=== PATIENT | male | born 1960 | race African-American/Black ===

== ENCOUNTER 2017-04-03 13:08 | Emergency (ER) | payer OTHER ==
[~2017-04-03] VITALS: Ht 177.8 cm; Wt 77.1 kg
[~2017-04-03 13:08] MED LIST: AZITHROMYCIN250 MG ORAL; NKM; [UNRECOGNIZED DRUG - REMARK]
[2017-04-03] MEDS ORDERED: FISH OIL CAP1000 MG ORAL (13:20)
[2017-04-03 13:21] VITALS: BP 119/70
--- NOTE | 2017-04-03 13:44 | Emergency Room Report ---
History of Present Illness General Chief Complaint: Pain Source: Patient Present Illness HPI 56 YO Male presents to the ED c/o 09/25 in severity pain and swelling that is progressive to the left knee x 8 months. 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 denies fall or significant trauma otherwise. pt. reports slow progression of pain. denies erythema of the joint, denies increased temperature to palpation, denies hx of gout/pseudogout or arthritis. pt. also presents with testicular pain described as a heavy discomfort x 5 days with swelling. denies erythema, penile d/c. pt. denies sexual activity, dysuria, hematuria, urgency or frequency. pt. reports hx of scrotal surgery several years ago when in the [facility] he does not recall what his dx was. denies fevers or chills. Denies numbness tingling or loss of sensation or gross motor movements of the extremities, incontinence of bowel or bladder. Denies CP, Palpitations, LOC, AMS, dizziness, Changes in Vision, Sensation, paresthesias, or a sudden severe headache. Allergies: Coded Allergies: No Known Allergies (Unverified , 04/03/12) Patient History Past Medical History: see triage record Past Surgical History: none Pertinent Family History: none Immunizations: UTD Reviewed Nursing Documentation: PMH: Agreed, PSxH: Agreed Nursing Documentation-PMH Past Medical History: No Stated History Review of Systems All Other Systems: negative except mentioned in HPI Physical Exam Vital Signs Date Time Temp Pulse Resp B/P (MAP) Pulse Ox O2 Delivery O2 Flow Rate FiO2 04/03/17 13:16 98.2 87 16 119/70 99 Room Air Sp02 EP Interpretation: reviewed, normal General Appearance: no apparent distress, alert, GCS 15, non-toxic Head: normocephalic, atraumatic Eyes: bilateral eye normal inspection, bilateral eye PERRL ENT: hearing grossly normal, normal voice Neck: full range of motion Respiratory: lungs clear, normal breath sounds, speaking full sentences Cardiovascular #1: regular rate, rhythm, no edema, normal capillary refill Gastrointestinal: non tender, no guarding, no rebound Rectal: deferred Genitourinary: normal inspection, no CVA tenderness, penis normal, other - swollen non-erythematous scrotal sac, only one testicle is palpated, cremasteric reflex is present , negative phren's sign, no LAD, no lesions or d/ c noted. Musculoskeletal: back normal, gait/station normal, normal range of motion, swelling - left knee, tender - anterior medial left knee ttp, no increased laxity, no erythema, no increased temperature to palpation, FROM Neurologic: alert, oriented x3, responsive, motor strength/tone normal, sensory intact, speech normal Psychiatric: judgement/insight normal, memory normal, mood/affect normal Skin: normal color, no rash, warm/dry, well hydrated Lymphatic: no adenopathy Medical Decision Making PA Attestation Dr. Gil is my supervising Physician whom patient management has been discussed with. Diagnostic Impression: Primary Impression: Hydrocele in adult Additional Impression: Arthritis of knee, left ER Course 56 YO Male presents to the ED c/o 09/25 in severity pain and swelling that is progressive to the left knee x 8 months. 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 denies fall or significant trauma otherwise. pt. reports slow progression of pain. denies erythema of the joint, denies increased temperature to palpation, denies hx of gout/pseudogout or arthritis. pt. also presents with testicular pain described as a heavy discomfort x 5 days with swelling. denies erythema, penile d/c. pt. denies sexual activity, dysuria, hematuria, urgency or frequency. pt. reports hx of scrotal surgery several years ago when in the [facility] he does not recall what his dx was. denies fevers or chills. Denies numbness tingling or loss of sensation or gross motor movements of the extremities, incontinence of bowel or bladder. Denies CP, Palpitations, LOC, AMS, dizziness, Changes in Vision, Sensation, paresthesias, or a sudden severe headache. Ddx considered but are not limited to testicular torsion, epididymitis, orchitis , abscess, hydrocele, hernia, arthritis, fracture, systemic gonococcal infection, gout just to name a few. Vital signs: are WNL, pt. is afebrile H&PE are most consistent with possible arthritis in the left knee will do imaging to evaluate, testicular symptoms suspicious for hydrocele, I do not suspect torsion or infection at this time. ORDERS: -UA: Unremarkable -- X-ray Left Knee 3 views - negative for fx, Dislocation, or significant soft tissue injury, per preliminary read in ED by Dr. Grande - interpretation is scribed by PA. - Testicular ultrasound: Hydrocele of the right testicle, the left testicle was surgically removed- Per US Tech Report- please see official radiologist report attached. ED INTERVENTIONS: -Fox wrap applied to the left knee by facilities maintenance technician. Pt. remains neurovascularly intact. - Pt. given copy of x-ray images. -d/w pt. the results of labs, and imaging. d/w pt. conservative treatment with close outpatient follow up with his PMD. gave pt. ED return precautions for worsening or new symptoms. -I do not suspect an emergent condition at this time. with current presentation pt. is stable for close outpatient follow up. D/w pt. to return to ED with worsening or new symptoms. DISCHARGE: At this time pt. is stable for d/c to home. Will provide printed patient care instructions, and any necessary prescriptions. Care plan and follow up instructions have been discussed with the patient prior to discharge. Labs Test 04/03/17 13:40 Urine Color Yellow Urine Appearance Clear Urine pH 5 (4.5-8.0) Urine Specific Gardner 1.020 (1.005-1.035) Urine Protein Negative (NEGATIVE) Urine Glucose (UA) Negative (NEGATIVE) Urine Ketones Negative (NEGATIVE) Urine Occult Blood Negative (NEGATIVE) Urine Nitrite Negative (NEGATIVE) Urine Bilirubin Negative (NEGATIVE) Urine Urobilinogen Normal MG/DL (0.0-1.0) Urine Leukocyte Esterase Negative (NEGATIVE) Last Vital Signs Date Time Temp Pulse Resp B/P (MAP) Pulse Ox O2 Delivery O2 Flow Rate FiO2 04/03/17 13:21 98.2 73 16 119/70 99 Room Air Disposition: HOME, SELF-CARE Condition: Stable Scripts Ibuprofen* (MOTRIN*) 600 Mg Tablet 600 MG ORAL THREE TIMES A DAY, #20 TAB 0 Refills Prov: Jennie Olea 04/03/17 Patient Instructions: Arthritis, [id number], Hydrocele, Adult Additional Instructions: Take medications as directed. Follow up with a Primary Care Provider in 3-5 days, even if your symptoms have resolved. --Please review list of primary care clinics, if you do not already have a primary care provider Return sooner to ED if new symptoms occur, or current symptoms become worse. - Please note that this Emergency Department Report was dictated using [employer] technology software, occasionally this can lead to erroneous entry secondary to interpretation by the dictation equipment. Jennie Olea Apr 03, 2017 13:44
[2017-04-03 13:50] LABS: APPEARANCE,URINE CLEAR; KETONES,URINE NEGATIVE (NEGATIVE); LEUKOCYTE ESTERASE ,URINE NEGATIVE (NEGATIVE); NITRITE,URINE NEGATIVE (NEGATIVE); PH,URINE 5 (4.5-8.0); PROTEIN,URINE NEGATIVE (NEGATIVE); UROBILINOGEN,URINE NORMAL MG/DL (0.0-1.0)
[2017-04-03] MEDS ORDERED: IBUPROFEN600 MG ORAL (14:58)
[2017-04-03 16:16] VITALS: BP 119/70
--- NOTE | 2017-04-04 11:06 | Diagnostic Imaging Report ---
Indication: Pain 3 views of the left knee were obtained. Findings: No acute fracture, malalignment, or joint effusion are identified. There is joint space narrowing and mild marginal osteophyte formation. Impression: Osteoarthritis
== END 2017-04-03 15:45 | disposition home or self-care (01) ==
LOC: EMR 15:20
DX: M17.12 Unilateral primary osteoarthritis, left knee (principal); N43.3 Hydrocele, unspecified
CPT/HCPCS: 76870; 81003; 99283

== ENCOUNTER 2017-11-18 22:56 | Emergency (ER) | payer OTHER ==
[~2017-11-18] VITALS: Ht 177.8 cm; Wt 77.1 kg
[~2017-11-18 22:56] MED LIST changes: +FISH OIL CAP1000 MG ORAL; +IBUPROFEN600 MG ORAL
[2017-11-18] MEDS ORDERED: Morphine Sulfate 4mg/ml Inj IVP ONE (23:45)
--- NOTE | 2017-11-19 00:20 | Emergency Room Report ---
History of Present Illness General Chief Complaint: Abdominal Pain Source: Patient Present Illness HPI This is a 57-year-old male with a history of laparotomy secondary to trauma. He presents with chief complaint abdominal pain with couple episode vomiting. No bowel movement. Onset today. Pain is 8 out of 10. Diffuse in nature. No fever chills but not passing gas. Denies any other complaint. Allergies: Coded Allergies: No Known Allergies (Unverified , 04/03/12) Patient History Past Medical History: see triage record, old chart reviewed Past Surgical History: other Pertinent Family History: none Social History: Denies: smoking Immunizations: other Reviewed Nursing Documentation: PMH: Agreed; PSxH: Agreed Nursing Documentation-PMH Past Medical History: No Stated History Review of Systems Eye: Denies: eye pain, blurred vision ENT: Denies: ear pain, nose congestion, throat swelling Respiratory: Denies: cough, shortness of breath Cardiovascular: Denies: chest pain, palpitations Gastrointestinal: Reports: abdominal pain, nausea, vomiting; Denies: diarrhea Musculoskeletal: Denies: back pain, joint pain Skin: Denies: rash Neurological: Denies: headache, numbness Endocrine: Denies: increased thirst, increased urine Hematologic/Lymphatic: Denies: easy bruising All Other Systems: negative except mentioned in HPI Physical Exam Vital Signs Date Time Temp Pulse Resp B/P (MAP) Pulse Ox O2 Delivery O2 Flow Rate FiO2 11/18/17 23:04 98.0 74 18 158/93 95 Room Air 98.1 vitals with high blood pressure Sp02 EP Interpretation: reviewed, normal General Appearance: well appearing, no apparent distress, alert Head: normocephalic, atraumatic Eyes: bilateral eye PERRL, bilateral eye EOMI ENT: hearing grossly normal, normal pharynx Neck: full range of motion, supple, no meningismus Respiratory: chest non-tender, lungs clear, normal breath sounds Cardiovascular #1: regular rate, rhythm, no murmur Gastrointestinal: no mass, no organomegaly, no bruit, non-distended, tenderness - mild diffuse, decreased bowel sounds Musculoskeletal: back normal, gait/station normal, normal range of motion Psychiatric: mood/affect normal Skin: warm/dry Medical Decision Making Diagnostic Impression: Primary Impression: Abdominal pain Qualified Codes: R10.84 - Generalized abdominal pain ER Course Patient with abdominal pain. No evidence of obstruction or acute abdomen. Pain is better now. He is tolerating by mouth and said he is passing gas. He may have had intermittent obstruction or enteritis. We'll discharge home with close follow-up. Lab Results Impression labs unremarkable CT/MRI/US Diagnostic Results CT/MRI/US Diagnostic Results : Imaging Test Ordered: CT abdomen and pelvis Impression CT ABDOMEN & PELVIS Without Contrast: Evaluation is limited without contrast. At least moderate emphysema. Areas of slight left lower lung opacity. Question infectious or inflammatory. Surgical clips near the left kidney. Absent right kidney. Multiple loops of prominent, possibly mildly dilated bowel in the left central lower abdomen, potentially with a loop of fecaloid contents. Question obstruction, ileus, enteritis. Radiologist: Cristin Castro M.D. read by radiologist Last Vital Signs Date Time Temp Pulse Resp B/P (MAP) Pulse Ox O2 Delivery O2 Flow Rate FiO2 11/18/17 23:04 98.0 74 18 158/93 95 Room Air 98.1 Status: improved Disposition: HOME, SELF-CARE Condition: Stable Scripts Ibuprofen* (MOTRIN*) 600 Mg Tablet 600 MG ORAL THREE TIMES A DAY, #30 TAB 0 Refills Prov: JONATHAN YOUNG M.D. 11/19/17 Referrals: [facility],REFERRING (PCP) Patient Instructions: Abdominal Pain, Adult Additional Instructions: Follow-up your doctor in 7 days. Return for increasing pain, vomiting, unable to pass gas or having a bowel movement. JONATHAN YOUNG M.D. November 19, 2017 00:20
[2017-11-19 00:30] LABS: ANION GAP 7 mmol/L (5-15); BLOOD UREA NITROGEN 19 mg/dL (7-18); CALCIUM 8.1 MG/DL (8.5-10.1); CARBON DIOXIDE 27 MMOL/L (21-32); CHLORIDE 107 MMOL/L (98-107); CREATININE 1.5 MG/DL (0.55-1.30); POTASSIUM 4.3 MMOL/L (3.5-5.1); SODIUM 141 MMOL/L (136-145)
[2017-11-19 00:34] LABS: ALANINE AMINOTRANSFERASE 31 U/L (12-78); ALBUMIN 2.7 G/DL (3.4-5.0); ALBUMIN/GLOBULIN RATIO 0.9 (1.0-2.7); ALKALINE PHOSPHATASE 42 U/L (46-116); ASPARTATE AMINO TRANSFERASE 26 U/L (15-37); BILIRUBIN,TOTAL 0.5 MG/DL (0.2-1.0)
[2017-11-19 00:41] LABS: HEMATOCRIT 46.2 % (42.0-52.0); HEMOGLOBIN 16.5 G/DL (14.2-18.0); RED BLOOD COUNT 5.01 M/UL (4.70-6.10); WHITE BLOOD COUNT 6.8 K/UL (4.8-10.8)
[2017-11-19 00:42] LABS: EOSINOPHILS % (AUTO) 0.1 % (0.0-3.0); MEAN CORPUSCULAR VOLUME 92 FL (80-99); MONOCYTES % (AUTO) 3.2 % (1.0-10.0); NEUTROPHILS % (AUTO) 81.8 % (45.0-75.0); PLATELET COUNT 123 K/UL (150-450); RED CELL DISTRIBUTION WIDTH 11.7 % (11.6-14.8)
[2017-11-19 00:43] LABS: BASOPHILS % (AUTO) 0.9 % (0.0-2.0)
[2017-11-19 01:57] VITALS: BP 158/93
[2017-11-19] MEDS ORDERED: IBUPROFEN600 MG ORAL (01:57)
--- NOTE | 2017-11-19 10:59 | Diagnostic Imaging Report ---
Indication: Abdominal pain Technique: CT of the abdomen and pelvis utilizing automated exposure control without intravenous or oral contrast. CT dose: Total DLP 552.06 mGycm; CTDI vol 10.78 mGy Comparison: None Findings: Please note that evaluation of the vascular and abdominal pelvic structures is limited without the use of intravenous and oral contrast. Within these limitations the following observations are made: There is at least moderate emphysema noted in the lung bases. There are dependent bibasilar atelectatic changes. With more focal opacities in the left lower lung which may be related to infection or inflammation heart size within normal limits. There is no pericardial effusion. Question mild coronary arterial calcification. Noncontrast evaluation of the liver, gallbladder, spleen, adrenal glands and pancreas is grossly unremarkable. The right kidney is surgically absent. There are surgical clips anterior to the left kidney. There are low-attenuation structures in the left renal hilum which likely represent parapelvic cysts. No evidence of hydronephrosis or urinary tract stone. Bladder unremarkable in appearance. Prostate may be borderline enlarged. There is no free intraperitoneal air. There is no ascites. There multiple loops of prominent and possibly mildly dilated small bowel left central and lower abdomen, potentially with a loop of fecalized small bowel contents. This raises question for obstruction, ileus or enteritis. Consider more sensitive evaluation with CT with oral and IV contrast. Abdominal aorta is normal in caliber with mild atherosclerotic ossification. No bulky/abdominal lymphadenopathy is appreciated. There are degenerative changes in the spine. IMPRESSION: Limited evaluation without intravenous and oral contrast. Within these limitations: * Multiple loops mildly dilated bowel in the left central lower abdomen with a loop of small bowel demonstrating fecalized content in the pelvis. This raises question for a degree of obstruction. CT of the abdomen and pelvis with IV and oral contrast recommended for further evaluation, especially if there is persistent abdominal pain. No evidence of free intraperitoneal air, ascites, pneumatosis intestinalis or portal venous gas at this time. * Absent right kidney. * Emphysema. * Asymmetric hazy left lower lung opacities which may be related to infection or inflammation. Correlate clinically. This corresponds with the preliminary report, with slight variance. Findings of final report discussed with Dr. Mckenzie of the ED approximately 10:[address] scanner at [facility] is accredited by the [employer] and the scans are performed using protocols designed to limit radiation exposure to as low as reasonably achievable to attain images of sufficient resolution adequate for diagnostic evaluation.
== END 2017-11-19 02:05 | disposition home or self-care (01) ==
LOC: EMR 23:21
DX: R10.9 Unspecified abdominal pain (principal); R11.2 Nausea with vomiting, unspecified; J43.9 Emphysema, unspecified; Z98.890 Other specified postprocedural states
CPT/HCPCS: 36415; 74176; 80053; 83690; 85025; 96374; 96375; 99284; J2270; J2405

== ENCOUNTER 2017-11-19 12:12 | Inpatient (IN) | payer OTHER ==
[~2017-11-19] VITALS: Ht 177.8 cm; Wt 77.1 kg
[2017-11-19 12:57] VITALS: BP 123/81
--- NOTE | 2017-11-19 13:01 | Emergency Room Report ---
History of Present Illness General Chief Complaint: Abdominal Pain Source: Patient Present Illness HPI Patient presents emergency department today complaining of abdominal pain. Patient states that he was in the emergency department yesterday. Actually I was called by radiology this morning to evaluate the patient because patient had a CT scan that was concerning for possible bowel obstruction. Patient was sitting in emergency Department last night. Patient has had some abdominal discomfort. Patient has had a couple episodes of vomiting. Patient has had history of trauma surgery. CAT scan was performed last night he was initially read as negative. However this morning I was informed by radiology to patient' s CAT scan could possibly show a bowel obstruction. Because of this finding I called the patient was states that he is still having abdominal pain which is why patient came in for further evaluation. Patient denies any other complaints. Symptoms noted to be moderate to severe. According to the radiologist they recommended getting a CT scan with oral contrast. Patient does have elevated creatinine therefore we'll hold IV contrast.No other modifying factors. No other associated signs and symptoms. No other complaints were noted. Allergies: Coded Allergies: No Known Allergies (Unverified , 04/03/12) Patient History Past Medical History: none PSxH Narrative prior surgical intervention for trauma Social History: Denies: smoking, alcohol use, drug use Reviewed Nursing Documentation: PMH: Agreed; PSxH: Agreed Nursing Documentation-PMH Past Medical History: No Stated History Review of Systems All Other Systems: negative except mentioned in HPI Physical Exam Vital Signs Date Time Temp Pulse Resp B/P (MAP) Pulse Ox O2 Delivery O2 Flow Rate FiO2 11/19/17 12:23 98.4 86 16 123/81 94 Room Air 98.4 Sp02 EP Interpretation: reviewed, normal General Appearance: normal inspection, well appearing, no apparent distress, alert Head: atraumatic Eyes: bilateral eye normal inspection ENT: normal ENT inspection, hearing grossly normal, normal voice Neck: normal inspection, full range of motion, supple, no bony tend Respiratory: normal inspection, lungs clear, normal breath sounds, no respiratory distress, no retraction, no wheezing Cardiovascular #1: regular rate, rhythm, no edema Gastrointestinal: soft, other - Diffusely tender to palpation Genitourinary: no CVA tenderness Musculoskeletal: normal inspection, back normal, normal range of motion Neurologic: normal inspection, alert, responsive, speech normal Psychiatric: normal inspection, judgement/insight normal, mood/affect normal Skin: normal inspection, normal color, no rash Medical Decision Making Diagnostic Impression: Primary Impression: Abdominal pain ER Course Patient presents emergency department today complaining of abdominal pain. Differential diagnoses include bowel obstruction, ileus, gastroenteritis, colitis just name a few.Given the severity of the patient's presentation I felt this is a highly complex patient. This patient required extensive workup. Given patient's presentation and prior CT scan we will obtain another CT scan with oral contrast.will sign the case out to Dr. Ben Noriega for final disposition Last Vital Signs Date Time Temp Pulse Resp B/P (MAP) Pulse Ox O2 Delivery O2 Flow Rate FiO2 11/19/17 12:23 98.4 86 16 123/81 94 Room Air 98.4 Referrals: [facility],REFERRING (PCP) THOMAS KUMAR M.D. November 19, 2017 13:01
[2017-11-19 13:15] LABS: BASOPHILS % (AUTO) 1.3 % (0.0-2.0); EOSINOPHILS % (AUTO) 0.1 % (0.0-3.0); LYMPHOCYTES % (AUTO) 17.9 % (20.0-45.0); MEAN CORPUSCULAR VOLUME 95 FL (80-99); MONOCYTES % (AUTO) 6.3 % (1.0-10.0); NEUTROPHILS % (AUTO) 74.3 % (45.0-75.0); PLATELET COUNT 123 K/UL (150-450); RED BLOOD COUNT 5.16 M/UL (4.70-6.10); RED CELL DISTRIBUTION WIDTH 11.8 % (11.6-14.8); WHITE BLOOD COUNT 6.5 K/UL (4.8-10.8)
[2017-11-19] MEDS ORDERED: Morphine Sulfate 4mg/ml Inj ONE (13:15)
[2017-11-19] MEDS ORDERED: Morphine Sulfate 4mg/ml Inj IVP ONE ×2 (13:15→16:00)
[2017-11-19 13:17] LABS: APPEARANCE,URINE CLEAR; BILIRUBIN, URINE NEGATIVE (NEGATIVE); GLUCOSE, URINE (UA) NEGATIVE (NEGATIVE); KETONES,URINE 2+ (NEGATIVE); LEUKOCYTE ESTERASE ,URINE 1+ (NEGATIVE); NITRITE,URINE NEGATIVE (NEGATIVE); PH,URINE 6 (4.5-8.0); PROTEIN,URINE 1+ (NEGATIVE); UROBILINOGEN,URINE NORMAL MG/DL (0.0-1.0)
[2017-11-19 13:20] LABS: COLOR,URINE YELLOW
[2017-11-19 13:26] LABS: INR 1.5 (0.9-1.1)
[2017-11-19 13:38] LABS: ALANINE AMINOTRANSFERASE 29 U/L (12-78); ALBUMIN 2.8 G/DL (3.4-5.0); ALBUMIN/GLOBULIN RATIO 0.8 (1.0-2.7); ALKALINE PHOSPHATASE 46 U/L (46-116); ANION GAP 5 mmol/L (5-15); ASPARTATE AMINO TRANSFERASE 34 U/L (15-37); BILIRUBIN,TOTAL 0.8 MG/DL (0.2-1.0); BLOOD UREA NITROGEN 17 mg/dL (7-18); CALCIUM 8.7 MG/DL (8.5-10.1); CARBON DIOXIDE 29 MMOL/L (21-32); CHLORIDE 105 MMOL/L (98-107); CREATININE 1.4 MG/DL (0.55-1.30); POTASSIUM 4.8 MMOL/L (3.5-5.1); SODIUM 139 MMOL/L (136-145)
[2017-11-19 14:40] VITALS: BP 123/77
--- NOTE | 2017-11-19 15:20 | Diagnostic Imaging Report ---
Indication: Abdominal pain Technique: CT of the abdomen and pelvis utilizing automated exposure control without intravenous contrast, oral contrast was administered. CT dose: Total DLP 535 mGycm; CTDI vol 10.8 mGy Comparison: 11/18/2017 Findings: Please note that evaluation of the vascular and abdominal and pelvic structures is limited without the use of intravenous contrast. Within these limitations the following observations are made: Moderate emphysema noted in the lung bases. There is some patchy opacities in the left lower lung unchanged from the prior exam which may be related to scarring, atelectasis or may be infectious or inflammatory etiology. There is no pericardial effusion. There is mild coronary arterial calcification. Noncontrast evaluation of the liver, gallbladder, spleen, adrenal glands and pancreas is grossly unremarkable. The right kidney is surgically absent. There are surgical clips anterior to the left kidney. There are low-attenuation structures in the left renal hilum which likely represent parapelvic cysts. No evidence of hydronephrosis or urinary tract stone. There is distention versus thickening of the bladder wall. Prostate is borderline enlarged. There is no free intraperitoneal air. There is persistent dilatation of small bowel loops in the left lower abdomen, with dilatation of some loops up to 4 cm in diameter (series 3 image #80). There probably some mild inflammatory stranding in the mesentery about these loops. Again noted is a loop of small bowel in the pelvis that demonstrates abnormal fecalization of contents. Distal small bowel loops are normal in caliber. Colon is decompressed. There is no definite pneumatosis intestinalis or portal venous gas. Abdominal aorta is normal in caliber with mild atherosclerotic ossification. No bulky/abdominal lymphadenopathy is appreciated. There are degenerative changes in the spine. IMPRESSION: Limited evaluation without intravenous contrast. Within these limitations: * Multiple loops of dilated small in the left lower abdomen, some measuring up to 4 cm in diameter with a loop of small bowel in the pelvis demonstrating abnormal fecalization of contents. This is again concerning for a degree of small bowel obstruction. Question subtle inflammatory change about some of the dilated small bowel loops in the left abdomen. No evidence of free intraperitoneal air, pneumatosis intestinalis or portal venous gas at this time. Surgical evaluation recommended. * Absent right kidney. * Emphysema. * Asymmetric hazy left lower lung opacities which may be related to scarring/atelectasis, infection or inflammation. Correlate clinically. The CT scanner at [facility] is accredited by the [employer] and the scans are performed using protocols designed to limit radiation exposure to as low as reasonably achievable to attain images of sufficient resolution adequate for diagnostic evaluation.
[2017-11-19 17:16] VITALS: BP 127/63
[2017-11-19 17:57] VITALS: BP 141/78
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
[2017-11-19] MEDS ORDERED: Albuterol/Ipratropium 3ml neb HHN PRN (19:45)
[2017-11-19 20:00] VITALS: BP 145/84
[2017-11-19] MEDS ORDERED: Morphine Sulfate 4mg/ml Inj IM PRN (20:15)
[2017-11-19] MEDS ORDERED: Morphine Sulfate 4mg/ml Inj IVP PRN (20:15)
[2017-11-19] MEDS: Morphine Sulfate 4mg/ml Inj IVP PRN (20:43)
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
[2017-11-19] MEDS: Heparin 5000 units/ml inj SUBQ SCH (21:41)
[2017-11-20] VITALS: BP 131/80
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
[2017-11-20 04:00] VITALS: BP 142/80
[2017-11-20] MEDS: Heparin 5000 units/ml inj SUBQ SCH ×3 (05:18→22:00)
[2017-11-20 08:06] VITALS: BP 135/76
--- NOTE | 2017-11-20 08:20 | Nephrology Progress Note ---
Assessment/Plan Assessment/Plan 1. Abd Pain- SBO - NG to suction - prn morphine - KUB this am. Appreciate surgery assistance - continue IVF's 2. CKD 3B- Cr approx 1.4-1.6 s/p right nephrectomy- solitary left kidney 3. DVT prophylaxsis- heparin 5000 units subq q 8hrs Subjective Date patient seen: November 20, 2017 Time patient seen: 08:15 ROS Limited/Unobtainable: No Gastrointestinal/Abdominal: Reports: abdominal pain Allergies: Coded Allergies: No Known Allergies (Unverified , 04/03/12) All Systems: reviewed and negative except above Subjective Patient with NG to suction. Abd pain improved Objective Last 24 Hour Vital Signs Date Time Temp Pulse Resp B/P (MAP) Pulse Ox O2 Delivery O2 Flow Rate FiO2 11/20/17 08:06 98.4 74 20 135/76 98 98.4 11/20/17 07:12 97 Nasal Cannula 2.0 11/20/17 04:00 98.1 60 20 142/80 97 Room Air 98.1 11/20/17 00:00 98.0 71 18 131/80 97 Room Air 98.0 11/19/17 21:13 97.9 11/19/17 20:43 97.9 11/19/17 20:00 97.9 66 19 145/84 94 Room Air 97.9 11/19/17 19:39 98.5 68 20 141/78 95 Room Air 98.5 11/19/17 17:57 98.5 68 20 141/78 95 98.5 11/19/17 17:16 208.4 16 127/63 94 Room Air 208.4 11/19/17 16:33 98.0 11/19/17 14:40 98.0 16 123/77 94 Room Air 98.0 11/19/17 13:20 98.4 11/19/17 12:57 98.4 16 123/81 94 Room Air 98.4 11/19/17 12:23 98.4 86 16 123/81 94 Room Air 98.4 Intake and Output 11/19/17 11/20/17 19:00 07:00 Intake Total 0 ml 750 ml Output Total 500 ml 500 ml Balance -500 ml 250 ml Intake Oral 0 ml IV Total 750 ml Output Urine Total 400 ml Emesis 500 ml Other 100 ml Laboratory Tests 11/19/17 13:00: White Blood Count 6.5, Red Blood Count 5.16, Hemoglobin 17.0, Hematocrit 49.0, Mean Corpuscular Volume 95, Mean Corpuscular Hemoglobin 33.0H, Mean Corpuscular Hemoglobin Concent 34.8, Red Cell Distribution Width 11.8, Platelet Count 123L, Mean Platelet Volume 10.5H, Neutrophils (%) (Auto) 74.3, Lymphocytes (%) (Auto) 17.9L, Monocytes (%) (Auto) 6.3, Eosinophils (%) (Auto) 0.1, Basophils (%) (Auto ) 1.3, Prothrombin Time 15.9H, Prothromb Time International Ratio 1.5H, Activated Partial Thromboplast Time 23, Urine Color Yellow, Urine Appearance Clear, Urine pH 6, Urine Specific [place] 1.020, Urine Protein 1+H, Urine Glucose (UA) Negative, Urine Ketones 2+H, Urine Occult Blood Negative, Urine Nitrite Negative, Urine Bilirubin Negative, Urine Urobilinogen Normal, Urine Leukocyte Esterase 1+H, Urine RBC 0-2H, Urine WBC 0-2, Urine Squamous Epithelial Cells Occasional, Urine Bacteria Occasional, Sodium Level 139, Potassium Level 4.8, Chloride Level 105, Carbon Dioxide Level 29, Anion Gap 5, Blood Urea Nitrogen 17, Creatinine 1.4H, Estimat Glomerular Filtration Rate > 60 , Glucose Level 96, Calcium Level 8.7, Total Bilirubin 0.8, Aspartate Amino Transf (AST/SGOT) 34, Alanine Aminotransferase (ALT/SGPT) 29, Alkaline Phosphatase 46, Total Protein 6.1L, Albumin 2.8L, Globulin 3.3, Albumin/ Globulin Ratio 0.8L, Lipase 90 11/20/17 00:00: White Blood Count [Pending], Red Blood Count [Pending], Hemoglobin [Pending], Hematocrit [Pending], Mean Corpuscular Volume [Pending], Mean Corpuscular Hemoglobin [Pending], Mean Corpuscular Hemoglobin Concent [Pending], Red Cell Distribution Width [Pending], Platelet Count [Pending], Mean Platelet Volume [ Pending], Neutrophils (%) (Auto) [Pending], Lymphocytes (%) (Auto) [Pending], Monocytes (%) (Auto) [Pending], Eosinophils (%) (Auto) [Pending], Basophils (%) (Auto) [Pending] Height (Feet): 5 Height (Inches): 10.00 Weight (Pounds): 170 General Appearance: WD/WN, mild distress EENT: PERRL/EOMI, normal ENT inspection Neck: non-tender, normal alignment Cardiovascular: normal rate, regular rhythm Respiratory/Chest: chest wall non-tender, lungs clear, normal breath sounds Abdomen: normal bowel sounds, non tender Extremities: normal range of motion, non-tender Edema: no edema noted Arm (L), no edema noted Arm (R), no edema noted Leg (L), no edema noted Leg (R), no edema noted Pedal (L), no edema noted Pedal (R), no edema noted Generalized Keith Reilly M.D. November 20, 2017 08:19
[2017-11-20 09:07] LABS: BASOPHILS % (AUTO) 2.3 % (0.0-2.0); EOSINOPHILS % (AUTO) 0.4 % (0.0-3.0); HEMATOCRIT 43.6 % (42.0-52.0); HEMOGLOBIN 15.2 G/DL (14.2-18.0); MEAN CORPUSCULAR VOLUME 94 FL (80-99); MONOCYTES % (AUTO) 9.1 % (1.0-10.0); NEUTROPHILS % (AUTO) 70.2 % (45.0-75.0); PLATELET COUNT 122 K/UL (150-450); RED BLOOD COUNT 4.65 M/UL (4.70-6.10); RED CELL DISTRIBUTION WIDTH 11.8 % (11.6-14.8); WHITE BLOOD COUNT 6.3 K/UL (4.8-10.8)
[2017-11-20 09:22] LABS: ANION GAP 5 mmol/L (5-15); BLOOD UREA NITROGEN 13 mg/dL (7-18); CALCIUM 7.7 MG/DL (8.5-10.1); CARBON DIOXIDE 26 MMOL/L (21-32); CHLORIDE 109 MMOL/L (98-107); CREATININE 1.3 MG/DL (0.55-1.30); POTASSIUM 4.3 MMOL/L (3.5-5.1); SODIUM 140 MMOL/L (136-145)
[2017-11-20 11:50] VITALS: BP 147/82
--- NOTE | 2017-11-20 14:14 | General Surgery Progress Note ---
General Surgery-Progress Note Subjective Symptoms: passing flatus Objective Last 24 Hour Vital Signs Date Time Temp Pulse Resp B/P (MAP) Pulse Ox O2 Delivery O2 Flow Rate FiO2 11/20/17 13:23 69 18 Nasal Cannula 2.0 28 11/20/17 13:23 99 Nasal Cannula 2.0 28 11/20/17 13:23 Nasal Cannula 2.0 28 11/20/17 11:50 98.0 65 20 147/82 97 98.0 11/20/17 08:06 Nasal Cannula 2.0 11/20/17 08:06 98.4 74 20 135/76 98 98.4 11/20/17 07:12 97 Nasal Cannula 2.0 11/20/17 04:00 98.1 60 20 142/80 97 Room Air 98.1 11/20/17 00:00 98.0 71 18 131/80 97 Room Air 98.0 11/19/17 21:13 97.9 11/19/17 20:43 97.9 11/19/17 20:00 97.9 66 19 145/84 94 Room Air 97.9 11/19/17 19:39 98.5 68 20 141/78 95 Room Air 98.5 11/19/17 17:57 98.5 68 20 141/78 95 98.5 11/19/17 17:16 208.4 16 127/63 94 Room Air 208.4 11/19/17 16:33 98.0 11/19/17 14:40 98.0 16 123/77 94 Room Air 98.0 I&O Intake and Output 11/19/17 11/20/17 19:00 07:00 Intake Total 0 ml 750 ml Output Total 500 ml 500 ml Balance -500 ml 250 ml Intake Oral 0 ml IV Total 750 ml Output Urine Total 400 ml Emesis 500 ml Other 100 ml Drains: none Respiratory: clear Abdomen: soft, non-tender, present bowel sounds Extremities: no edema, no tenderness Laboratory Tests Test 11/20/17 08:40 White Blood Count 6.3 K/UL (4.8-10.8) Red Blood Count 4.65 M/UL (4.70-6.10) L Hemoglobin 15.2 G/DL (14.2-18.0) Hematocrit 43.6 % (42.0-52.0) Mean Corpuscular Volume 94 FL (80-99) Mean Corpuscular Hemoglobin 32.7 PG (27.0-31.0) H Mean Corpuscular Hemoglobin Concent 34.8 G/DL (32.0-36.0) Red Cell Distribution Width 11.8 % (11.6-14.8) Platelet Count 122 K/UL (150-450) L Mean Platelet Volume 11.5 FL (6.5-10.1) H Neutrophils (%) (Auto) 70.2 % (45.0-75.0) Lymphocytes (%) (Auto) 18.0 % (20.0-45.0) L Monocytes (%) (Auto) 9.1 % (1.0-10.0) Eosinophils (%) (Auto) 0.4 % (0.0-3.0) Basophils (%) (Auto) 2.3 % (0.0-2.0) H Sodium Level 140 MMOL/L (136-145) Potassium Level 4.3 MMOL/L (3.5-5.1) Chloride Level 109 MMOL/L (98-107) H Carbon Dioxide Level 26 MMOL/L (21-32) Anion Gap 5 mmol/L (5-15) Blood Urea Nitrogen 13 mg/dL (7-18) Creatinine 1.3 MG/DL (0.55-1.30) Estimat Glomerular Filtration Rate > 60 mL/min (>60) Glucose Level 110 MG/DL (74-106) H Calcium Level 7.7 MG/DL (8.5-10.1) L Imaging contrast in ascending colon Assessment Additional Comments R/O SBO Plan Additional Comments remove NG tube JAYCOB SÁNCHEZ November 20, 2017 14:14
[2017-11-20] MEDS ORDERED: Metoclopramide 10mg/2ml Inj IVP PRN (14:22)
[2017-11-20] MEDS ORDERED: Calcium Gluconate 1gm/10ml vial IVP ONE (15:15)
[2017-11-20 16:03] VITALS: BP 143/72
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
[2017-11-20] MEDS: Docusate Sod/Senna tab ORAL SCH (17:58)
[2017-11-20 20:00] VITALS: BP 142/65
[2017-11-20] MEDS: Miralax 17gm pkt ORAL SCH (20:34)
[2017-11-20] MEDS: Morphine Sulfate 4mg/ml Inj IVP PRN (20:35)
[2017-11-21] VITALS: BP 145/69
[2017-11-21 04:00] VITALS: BP 110/64
[2017-11-21] MEDS: Heparin 5000 units/ml inj SUBQ SCH ×3 (05:52→22:00)
[2017-11-21 07:57] VITALS: BP 115/71
[2017-11-21] MEDS: Docusate Sod/Senna tab ORAL SCH ×2 (08:55→17:04)
--- NOTE | 2017-11-21 09:28 | Nephrology Progress Note ---
Assessment/Plan Assessment/Plan 1. Abd Pain- SBO - NG removed - DC IVF's - plan to DC tomorrow if patient tolerates solid food and cleared by surgery 2. CKD 3B- Cr approx 1.4-1.6 s/p right nephrectomy- solitary left kidney I will follow patient in my renal clinic post DC for CKD management 3. DVT prophylaxsis- heparin 5000 units subq q 8hrs Subjective Date patient seen: November 21, 2017 Time patient seen: 09:26 Allergies: Coded Allergies: No Known Allergies (Unverified , 04/03/12) All Systems: reviewed and negative except above Subjective NG removed. Patient passing gas. On liquid diet Objective Last 24 Hour Vital Signs Date Time Temp Pulse Resp B/P (MAP) Pulse Ox O2 Delivery O2 Flow Rate FiO2 11/21/17 07:57 98.4 59 20 115/71 94 98.4 11/21/17 04:00 98.1 65 20 110/64 94 98.1 11/21/17 00:00 98.2 60 19 145/69 99 98.2 11/20/17 20:00 98.4 59 20 142/65 100 98.4 11/20/17 19:35 Room Air 21 11/20/17 19:35 100 Room Air 21 11/20/17 19:35 65 20 Nasal Cannula 21 11/20/17 16:03 Nasal Cannula 2.0 11/20/17 16:03 97.7 65 20 143/72 100 97.7 11/20/17 13:23 69 18 Nasal Cannula 2.0 28 11/20/17 13:23 99 Nasal Cannula 2.0 28 11/20/17 13:23 Nasal Cannula 2.0 28 11/20/17 11:50 98.0 65 20 147/82 97 98.0 11/20/17 11:50 Nasal Cannula 2.0 Intake and Output 11/20/17 11/21/17 19:00 07:00 Intake Total 900 ml 900 ml Output Total 800 ml Balance 100 ml 900 ml IV Total 900 ml 900 ml Output Urine Total 800 ml # Voids 3 # Bowel Movements 1 Height (Feet): 5 Height (Inches): 10.00 Weight (Pounds): 170 General Appearance: WD/WN, no apparent distress, alert EENT: PERRL/EOMI, normal ENT inspection Neck: non-tender, normal alignment Cardiovascular: normal peripheral pulses, normal rate Respiratory/Chest: chest wall non-tender, lungs clear, normal breath sounds Abdomen: normal bowel sounds, non tender, soft Edema: no edema noted Arm (L), no edema noted Arm (R), no edema noted Leg (L), no edema noted Leg (R), no edema noted Pedal (L), no edema noted Pedal (R), no edema noted Generalized Keith Reilly M.D. November 21, 2017 09:28
[2017-11-21 09:37] LABS: BASOPHILS % (AUTO) 1.2 % (0.0-2.0); EOSINOPHILS % (AUTO) 1.6 % (0.0-3.0); HEMATOCRIT 42.8 % (42.0-52.0); HEMOGLOBIN 15.2 G/DL (14.2-18.0); MEAN CORPUSCULAR VOLUME 94 FL (80-99); MONOCYTES % (AUTO) 10.7 % (1.0-10.0); NEUTROPHILS % (AUTO) 60.4 % (45.0-75.0); PLATELET COUNT 115 K/UL (150-450); RED BLOOD COUNT 4.57 M/UL (4.70-6.10); RED CELL DISTRIBUTION WIDTH 11.6 % (11.6-14.8); WHITE BLOOD COUNT 4.6 K/UL (4.8-10.8)
[2017-11-21 10:12] LABS: ANION GAP 8 mmol/L (5-15); BLOOD UREA NITROGEN 11 mg/dL (7-18); CALCIUM 7.9 MG/DL (8.5-10.1); CARBON DIOXIDE 24 MMOL/L (21-32); CHLORIDE 109 MMOL/L (98-107); CREATININE 1.2 MG/DL (0.55-1.30); POTASSIUM 4.1 MMOL/L (3.5-5.1); SODIUM 141 MMOL/L (136-145)
[2017-11-21 12:04] VITALS: BP 127/80
--- NOTE | 2017-11-21 15:38 | General Surgery Progress Note ---
General Surgery-Progress Note Subjective Symptoms: improved, BM Objective Last 24 Hour Vital Signs Date Time Temp Pulse Resp B/P (MAP) Pulse Ox O2 Delivery O2 Flow Rate FiO2 11/21/17 12:04 98.2 64 127/80 98 Room Air 98.2 11/21/17 07:57 98.4 59 20 115/71 94 98.4 11/21/17 04:00 98.1 65 20 110/64 94 98.1 11/21/17 00:00 98.2 60 19 145/69 99 98.2 11/20/17 20:00 98.4 59 20 142/65 100 98.4 11/20/17 19:35 Room Air 21 11/20/17 19:35 100 Room Air 21 11/20/17 19:35 65 20 Nasal Cannula 21 11/20/17 16:03 Nasal Cannula 2.0 11/20/17 16:03 97.7 65 20 143/72 100 97.7 I&O Intake and Output 11/20/17 11/21/17 19:00 07:00 Intake Total 900 ml 900 ml Output Total 800 ml Balance 100 ml 900 ml IV Total 900 ml 900 ml Output Urine Total 800 ml # Voids 3 # Bowel Movements 1 Respiratory: clear Abdomen: soft, flat, non-tender, present bowel sounds Extremities: no tenderness Laboratory Tests Test 11/21/17 07:35 White Blood Count 4.6 K/UL (4.8-10.8) L Red Blood Count 4.57 M/UL (4.70-6.10) L Hemoglobin 15.2 G/DL (14.2-18.0) Hematocrit 42.8 % (42.0-52.0) Mean Corpuscular Volume 94 FL (80-99) Mean Corpuscular Hemoglobin 33.2 PG (27.0-31.0) H Mean Corpuscular Hemoglobin Concent 35.5 G/DL (32.0-36.0) Red Cell Distribution Width 11.6 % (11.6-14.8) Platelet Count 115 K/UL (150-450) L Mean Platelet Volume 10.0 FL (6.5-10.1) Neutrophils (%) (Auto) 60.4 % (45.0-75.0) Lymphocytes (%) (Auto) 26.0 % (20.0-45.0) Monocytes (%) (Auto) 10.7 % (1.0-10.0) H Eosinophils (%) (Auto) 1.6 % (0.0-3.0) Basophils (%) (Auto) 1.2 % (0.0-2.0) Sodium Level 141 MMOL/L (136-145) Potassium Level 4.1 MMOL/L (3.5-5.1) Chloride Level 109 MMOL/L (98-107) H Carbon Dioxide Level 24 MMOL/L (21-32) Anion Gap 8 mmol/L (5-15) Blood Urea Nitrogen 11 mg/dL (7-18) Creatinine 1.2 MG/DL (0.55-1.30) Estimat Glomerular Filtration Rate > 60 mL/min (>60) Glucose Level 100 MG/DL (74-106) Calcium Level 7.9 MG/DL (8.5-10.1) L Assessment Additional Comments paralytic ileus resolved Plan Additional Comments advance diet can be discharged in AM JAYCOB SÁNCHEZ November 21, 2017 15:38
[2017-11-21 15:59] VITALS: BP 134/82
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
[2017-11-21 20:00] VITALS: BP 134/84
[2017-11-21] MEDS: Miralax 17gm pkt ORAL SCH (21:00)
[2017-11-22] VITALS: BP 110/65
[2017-11-22 04:00] VITALS: BP 122/74
[2017-11-22] MEDS: Heparin 5000 units/ml inj SUBQ SCH (05:21)
[2017-11-22 08:00] VITALS: BP 116/66
[2017-11-22 08:28] LABS: BASOPHILS % (AUTO) 1.6 % (0.0-2.0); HEMATOCRIT 44.6 % (42.0-52.0); HEMOGLOBIN 15.8 G/DL (14.2-18.0); MEAN CORPUSCULAR VOLUME 94 FL (80-99); MONOCYTES % (AUTO) 11.3 % (1.0-10.0); NEUTROPHILS % (AUTO) 53.2 % (45.0-75.0); PLATELET COUNT 118 K/UL (150-450); RED BLOOD COUNT 4.74 M/UL (4.70-6.10); RED CELL DISTRIBUTION WIDTH 11.4 % (11.6-14.8); WHITE BLOOD COUNT 4.3 K/UL (4.8-10.8)
[2017-11-22] MEDS: Docusate Sod/Senna tab ORAL SCH (08:36)
[2017-11-22 08:42] LABS: ANION GAP 7 mmol/L (5-15); BLOOD UREA NITROGEN 13 mg/dL (7-18); CALCIUM 7.9 MG/DL (8.5-10.1); CARBON DIOXIDE 25 MMOL/L (21-32); CHLORIDE 111 MMOL/L (98-107); CREATININE 1.3 MG/DL (0.55-1.30); POTASSIUM 4.7 MMOL/L (3.5-5.1); SODIUM 143 MMOL/L (136-145)
--- NOTE | 2017-11-22 09:49 | Discharge Instructions ---
Discharge Instructions Discharge Instructions Call MD/Return to Hospital if: Abdominal pain returns Diet: regular Resume Normal Activity?: Yes Activity: resume normal activities Pneumonia Vaccine: vaccine not indicated Influenza Vaccine (Apr to Sep): vaccine not indicated For Congestive Heart Failure Reminder Report to your physician any weight gain of 5 pounds or more in one week. Keith Reilly M.D. November 22, 2017 09:49
--- NOTE | 2017-11-22 14:15 | Discharge Summary ---
DATE OF ADMISSION: 11/19/2017 DATE OF DISCHARGE: 11/22/2017 REASON FOR ADMISSION: 1. Abdominal pain. 2. Small bowel obstruction/ileus. HOSPITAL COURSE: The patient is a pleasant 57-year-old gentleman, who was admitted for evaluation of abdominal pain, nausea, and vomiting. With CT of the abdomen and pelvis, then noticed a partial small bowel obstruction versus ileus. The patient was admitted on a timely basis and was placed on NPO status. NG-tube to intermittent suction was placed. IV fluids were initiated. The patient progressively improved and abdominal pain resolved. After the third day of hospitalization, the patient had his diet advanced from clear liquids to full diet. He then had flatus and bowel movements. He is stable for discharge today. HOME MEDICATIONS: At this time, the patient is on no medications. FOLLOWUP POST DISCHARGE: The patient to follow up with myself, Nephrology for CKD, stage 3b, creatinine 1.3. My office will call him in one to two weeks for an appointment. DISPOSITION AT DISCHARGE: Stable. If abdominal pain returns or the patient has any further nausea or vomiting, he is to return to the hospital. Keith Reilly MD DR: YASMIN JOB#: [id number] CC:
--- NOTE | 2017-11-23 08:08 | Discharge Summary ---
Discharge Summary Discharge Summary Discharge Summary ADDENDUM DISCHARGE DIAGNOSES Small bowel obstruction-resolved abdominal pain 2 to SERGE-resolved CKD st 3 COPD Chandrakant (Christy)Lucy NP November 23, 2017 08:08
== END 2017-11-22 11:00 | disposition home or self-care (01) | DRG 247 ==
LOC: EMR 12:31 → EDBEDREQ 15:30 → 4W 15:35 → EDBEDREQ 16:40
DX: K56.7 Ileus, unspecified (principal); N18.3 Chronic kidney disease, stage 3 (moderate); J44.9 Chronic obstructive pulmonary disease, unspecified; Z90.5 Acquired absence of kidney; Z87.891 Personal history of nicotine dependence
CPT/HCPCS: 36415; 74018; 74176; 80048; 80053; 81003; 83690; 85025; 85610; 85730; 94664; 94760; 99285; C9399; J2405

== ENCOUNTER 2017-12-04 06:44 | Emergency (ER) | payer OTHER ==
[~2017-12-04] VITALS: Ht 177.8 cm; Wt 77.1 kg
[2017-12-04 07:10] VITALS: BP 132/84
[2017-12-04] MEDS ORDERED: IBUPROFEN600 MG ORAL (08:05)
[2017-12-04 08:12] VITALS: BP 132/84
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
== END 2017-12-04 08:12 | disposition home or self-care (01) ==
LOC: EMR 07:10
DX: S60.222A Contusion of left hand, initial encounter (principal); W10.9XXA Fall (on) (from) unspecified stairs and steps, initial encounter; Y92.89 Other specified places as the place of occurrence of the external cause; M79.641 Pain in right hand
CPT/HCPCS: 99284

== ENCOUNTER 2018-06-22 09:23 | Emergency (ER) | payer OTHER ==
[~2018-06-22] VITALS: Ht 177.8 cm; Wt 72.6 kg
[2018-06-22 09:33] VITALS: BP 122/77
[2018-06-22] MEDS ORDERED: NKM (09:38)
--- NOTE | 2018-06-22 10:15 | Emergency Room Report ---
History of Present Illness General Chief Complaint: Nausea, Vomiting, and Diarrhea Source: Patient Present Illness HPI 57-year-old male with no medical problems, surgical history significant for splenectomy status post trauma, presents with epigastric area crampy abdominal pain that started this morning with an associated episode of vomiting once and loose nonbloody stools once this morning. He reports the pain is progressively improved since that started this morning, he thinks having the vomiting and diarrhea seem to have helped. He denies recent antibiotic use, does report he ate chicken salad last night and thinks it may have contributed to his symptoms. He currently reports pain is mild, crampy, epigastric area, and has no fevers, chest pain, shortness breath, any other symptoms. Allergies: Coded Allergies: No Known Allergies (Unverified , 04/03/12) Patient History Past Medical History: see triage record Reviewed Nursing Documentation: PMH: Agreed; PSxH: Agreed Nursing Documentation-PMH Past Medical History: No Stated History Review of Systems All Other Systems: negative except mentioned in HPI Physical Exam Vital Signs Date Time Temp Pulse Resp B/P (MAP) Pulse Ox O2 Delivery O2 Flow Rate FiO2 06/22/18 09:33 97.3 17 122/77 99 Room Air 06/22/18 09:33 89 Sp02 EP Interpretation: reviewed, normal General Appearance: no apparent distress, alert, non-toxic Head: normocephalic Eyes: bilateral eye normal inspection, bilateral eye PERRL, bilateral eye EOMI ENT: normal ENT inspection, hearing grossly normal, normal pharynx, no angioedema, normal voice, moist mucus membranes Neck: normal inspection, full range of motion, supple, supple/symm/no masses Respiratory: chest non-tender, lungs clear, normal breath sounds, chest symmetrical, palpation of chest normal Cardiovascular #1: normal peripheral pulses, regular rate, rhythm Cardiovascular #2: 2+ radial (R), 2+ radial (L) Gastrointestinal: normal inspection, non tender, soft, no mass, no guarding, no rebound Rectal: deferred Genitourinary: normal inspection, no CVA tenderness Musculoskeletal: back normal, gait/station normal, normal range of motion, non- tender, no calf tenderness Neurologic: alert, responsive, 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 as tested, motor strength/tone normal, sensory intact, speech normal Psychiatric: judgement/insight normal, memory normal, mood/affect normal Skin: normal color, no rash, warm/dry, normal turgor Lymphatic: no adenopathy Medical Decision Making Diagnostic Impression: Primary Impression: Nausea, vomiting, and diarrhea ER Course Patient with signs and symptoms of a viral gastroenteritis, possible salmonella , but is not had large volume diarrhea here, had only one episode prior to arrival of vomiting and diarrhea, has a soft nontender abdomen, do not suspect obstruction, is well-appearing, was given IV fluids, Zofran, Pepcid. Patient's x-rays unremarkable, he has not had any vomiting or diarrhea since being here, he was given a liter of IV fluids, he had very minimal prerenal as a tenia, with an elevated BUN/creatinine, was able tolerate by mouth fluids here , had a repeat exam with a soft abdomen, his lipase was slightly elevated at 558 , but he wasn't having active pain, he is a nondrinker, it may be a sequela of his previous traumatic injuries in the past, but in any case he is not having clinical symptoms consistent with acute pancreatitis, he will be discharged instructed to follow-up with his regular doctor, return to the ER for any recurrent pain, vomiting or new symptoms. Hands and agrees, and will be discharged with a prescription for Pepcid and Zofran. EKG Diagnostic Results EKG Time: 10:14 EP Interpretation: 76 Rate: normal Rhythm: NSR ST Segments: no acute changes ASA given to the pt in ED: No Rhythm Strip Diag. Results Rhythm Strip Time: 10:14 EP Interpretation: yes Rate: 77 Rhythm: NSR, no PVC's, no ectopy Other X-Ray Diagnostic Results Other X-Ray Diagnostic Results : X-Ray ordered: abdomen # of Views/Limited Vs Complete: 2 View Indication: Pain EP Interpretation: Yes PA Xray: Interpretation reviewed Interpretation: no dislocation, no soft tissue swelling, no fractures, nonspecific bowel gas, no sbo Impression: No acute disease Electronically Signed by: Anthony Ziegler MD Last Vital Signs Date Time Temp Pulse Resp B/P (MAP) Pulse Ox O2 Delivery O2 Flow Rate FiO2 06/22/18 09:33 97.3 89 17 122/77 99 Room Air Disposition: HOME, SELF-CARE Condition: Stable Referrals: [facility],REFERRING (PCP) ANTHONY ZIEGLER M.D Jun 22, 2018 10:15
[2018-06-22 10:21] LABS: HEMATOCRIT 53.2 % (42.0-52.0); HEMOGLOBIN 17.7 G/DL (14.2-18.0); MEAN CORPUSCULAR VOLUME 92 FL (80-99); PLATELET COUNT 138 K/UL (150-450); RED BLOOD COUNT 5.77 M/UL (4.70-6.10); RED CELL DISTRIBUTION WIDTH 11.5 % (11.6-14.8); WHITE BLOOD COUNT 7.5 K/UL (4.8-10.8)
[2018-06-22 10:23] LABS: APPEARANCE,URINE CLEAR; BILIRUBIN, URINE NEGATIVE (NEGATIVE); GLUCOSE, URINE (UA) NEGATIVE (NEGATIVE); KETONES,URINE 1+ (NEGATIVE); LEUKOCYTE ESTERASE ,URINE NEGATIVE (NEGATIVE); NITRITE,URINE NEGATIVE (NEGATIVE); PH,URINE 5 (4.5-8.0); PROTEIN,URINE NEGATIVE (NEGATIVE); UROBILINOGEN,URINE NORMAL MG/DL (0.0-1.0)
[2018-06-22 10:25] LABS: COLOR,URINE YELLOW
[2018-06-22 10:36] LABS: ANION GAP 6 mmol/L (5-15); BLOOD UREA NITROGEN 29 mg/dL (7-18); CALCIUM 8.6 MG/DL (8.5-10.1); CARBON DIOXIDE 29 MMOL/L (21-32); CHLORIDE 109 MMOL/L (98-107); CREATININE 1.5 MG/DL (0.55-1.30); POTASSIUM 4.4 MMOL/L (3.5-5.1); SODIUM 144 MMOL/L (136-145)
[2018-06-22 10:41] LABS: ALANINE AMINOTRANSFERASE 24 U/L (12-78); ALBUMIN 2.9 G/DL (3.4-5.0); ALBUMIN/GLOBULIN RATIO 0.8 (1.0-2.7); ALKALINE PHOSPHATASE 53 U/L (46-116); ASPARTATE AMINO TRANSFERASE 24 U/L (15-37); BILIRUBIN,TOTAL 0.5 MG/DL (0.2-1.0)
[2018-06-22] MEDS ORDERED: ZOFRAN4 M1 ORAL (11:33)
[2018-06-22] MEDS ORDERED: PEPCID AC20 M2 PO (11:33)
--- NOTE | 2018-06-22 12:18 | Diagnostic Imaging Report ---
. Indications: Reason For Exam: PAIN Technique: 2 views of the abdomen. Comparison: 11/20/2017 Findings: The bowel gas pattern is unremarkable. No intraperitoneal free air, bowel wall thickening, or air-fluid levels are demonstrated. No abnormal calcific or soft tissue densities are demonstrated. The visualized skeletal structures are unremarkable. Surgical clips are seen in the medial right abdomen and left upper quadrant Impression: Negative two-view abdominal series.
[2018-06-22 12:20] VITALS: BP 129/82
== END 2018-06-22 12:20 | disposition home or self-care (01) ==
LOC: EMR 10:10
DX: R11.2 Nausea with vomiting, unspecified (principal); R19.7 Diarrhea, unspecified; R10.13 Epigastric pain; Z98.890 Other specified postprocedural states
CPT/HCPCS: 36415; 74019; 80053; 81003; 83690; 84484; 85007; 85025; 93005; 96361; 96374; 96375; 99284; J2405; S0028

== ENCOUNTER 2019-01-24 23:11 | Emergency (ER) | payer OTHER ==
[~2019-01-24] VITALS: Ht 180.3 cm; Wt 72.6 kg
[~2019-01-24 23:11] MED LIST changes: +PEPCID AC20 M2 PO; +ZOFRAN4 M1 ORAL
[2019-01-24] MEDS ORDERED: [UNRECOGNIZED DRUG - REMARK] (23:24)
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
[2019-01-25] MEDS ORDERED: IBUPROFEN600 MG ORAL (03:50)
[2019-01-25] MEDS ORDERED: NORCO 5-325 TA1 EACH ORAL (03:50)
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
[2019-01-25 06:00] VITALS: BP 145/76
--- NOTE | 2019-01-25 06:00 | NUR ---
ED Nurse Note: pt cleared to be d/c per ERMD, pt discharge and aftercare instruction provided w/ prescription, pt education done via discussion and handout, pt advised to follow up with pcp or return to ed if changes in condition, pt verbalized understanding and agrees with plan, vss, ambulatory w/ steady gait, knee immobilizer applied, crutches provided, pt left w/ all belongings.
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
== END 2019-01-25 06:00 | disposition home or self-care (01) ==
LOC: EMR 01-25 00:11
DX: S80.02XA Contusion of left knee, initial encounter (principal); S60.221A Contusion of right hand, initial encounter; V09.20XA Pedestrian injured in traffic accident involving unspecified motor vehicles, initial encounter; Y92.9 Unspecified place or not applicable
CPT/HCPCS: 99284

== ENCOUNTER 2020-04-14 10:25 | Emergency (ER) | payer OTHER ==
[~2020-04-14] VITALS: Ht 175.3 cm; Wt 74.8 kg
[~2020-04-14 10:25] MED LIST changes: +NORCO 5-325 TA1 EACH ORAL; +[UNRECOGNIZED DRUG - REMARK]
--- NOTE | 2020-04-14 10:48 | NUR ---
ED Nurse Note: Patient walked into ED c/o chronic back pain that has been worse for 2 days.
[2020-04-14] MEDS ORDERED: ROBAXIN-750750 MG PO (10:52)
[2020-04-14] MEDS ORDERED: IBUPROFEN600 M1 ORAL (10:52)
[2020-04-14] MEDS ORDERED: LIDODERM700 M1 TOPIC (10:52)
--- NOTE | 2020-04-14 10:55 | Emergency Room Report ---
History of Present Illness General Chief Complaint: Back Pain-No Injury Source: Patient Present Illness HPI Disclaimer: Please note that this report is being documented using [employer] technology. This can lead to erroneous entry secondary to incorrect interpretation by the dictating instrument. HPI: 59-year-old male presents for evaluation of neck pain. No injury reported. Over the past 3 days he has had worsening stiffness and reduced range of motion in the cervical spine. Denies shooting pains, headaches, ringing in his ears, fever, chills, vision changes numbness, tingling in the extremities focal weakness or other changes in his health. Pain is worse when looking up and rotating the neck. Feels a stiffness in his upper neck and upper shoulders. Pain is exacerbated by movement and relieved by rest. Has not taken any medication prior to arrival. PMH: Denied PSH: Denied Allergies: Denied Social Hx: Denied Allergies: Coded Allergies: No Known Allergies (Unverified , 04/03/12) COVID-19 Screening Contact w/high risk pt: No Experienced COVID-19 symptoms?: No COVID-19 Testing performed BUSINESS SERVICES OFFICER: No Nursing Documentation-PMH Past Medical History: No Stated History Review of Systems All Other Systems: negative except mentioned in HPI Physical Exam Vital Signs Date Time Temp Pulse Resp B/P (MAP) Pulse Ox O2 Delivery O2 Flow Rate FiO2 04/14/20 10:40 97.3 89 17 125/79 (94) 97 Room Air General: Awake and alert, no acute distress HEENT: NC/AT. EOMI. Resp: Normal work of breathing Skin: Intact. No abrasions, laceration or rash over the exposed skin MSK: Normal tone and bulk. Moving all extremities. No obvious deformity. Neuro: Awake and alert. Mentating appropriately Spine: No tenderness, step-off or deformity in the midline over the bony prominences of the cervical or thoracic spine. There is moderate paraspinal tenderness extending over the trapezius bilaterally over the shoulder and mid upper back. No obvious trigger point. No masses appreciated. Medical Decision Making Diagnostic Impression: Primary Impression: Trapezius muscle spasm Additional Impression: Back muscle spasm ER Course 59-year-old male presents for evaluation of neck and upper shoulder pain and reduced range of motion. Patient's presentation is most consistent with cervical spasm. There is no injury reported and little concern for fracture dislocation at this time. Patient is otherwise well-appearing in his usual state of health without focal findings or neurologic deficits on his exam. Will be treated with NSAIDs, topical pain relievers, muscle relaxers. Stable for outpatient follow-up. Do not believe he requires emergent labs or imaging at this time. Instructed to return with new or worsening symptoms. Instructed not to drive or operate heavy machinery while using muscle relaxant. He understands and agrees with this treatment plan will be discharged home. Last Vital Signs Date Time Temp Pulse Resp B/P (MAP) Pulse Ox O2 Delivery O2 Flow Rate FiO2 04/14/20 10:40 97.3 89 17 125/79 (94) 97 Room Air Disposition: HOME, SELF-CARE Condition: Stable Scripts Methocarbamol* (ROBAXIN-750*) 750 Mg Tablet 750 MG PO QID, #28 TAB 0 Refills Prov: Duane Hastings MD 04/14/20 Lidocaine Patch* (Lidoderm Patch*) 1 Each Adh..patch 1 PATCH TOPIC DAILY, #14 PATCH 0 Refills Patch(es) may remain in place for up to 12 hours in any 24-hour period. Prov: Duane Hastings MD 04/14/20 Ibuprofen* (MOTRIN*) 600 Mg Tablet 600 MG ORAL Q6H PRN for For Pain, #30 TAB 0 Refills Prov: Duane Hastings MD 04/14/20 Patient Instructions: Back Pain, Adult, Heat Therapy Additional Instructions: Please follow-up with your primary care doctor in the next 1 to 3 days to discuss this emergency department visit and for reevaluation. If you have any new or worsening symptoms please return to the emergency department for reevaluation. Please note that this report is being documented using [employer] technology. This can lead to erroneous entry secondary to incorrect interpretation by the dictating instrument. Duane Hastings MD Apr 14, 2020 10:55
[2020-04-14] MEDS ORDERED: Ketorolac 30mg Inj IM ONE (11:00)
[2020-04-14] MEDS ORDERED: Methocarbamol 750mg tab ORAL ONE (11:00)
--- NOTE | 2020-04-14 11:09 | NUR ---
ED Nurse Note: Lidocain patches applied to bilat neck and shoulders. Medications administered per ERMD orders.
[2020-04-14 11:15] VITALS: BP 125/79
--- NOTE | 2020-04-14 11:15 | NUR ---
ED Nurse Note: Pt cleared by health care Provider for discharge. DC instructions/prescription was given and explained to pt and verbalized understanding of teachings. ID band removed. Pt is AAO x4, ambulatory and left with all personal belongings.
== END 2020-04-14 11:15 | disposition home or self-care (01) ==
LOC: EMR 10:48
DX: M62.838 Other muscle spasm (principal); M62.830 Muscle spasm of back
CPT/HCPCS: 96372; J1885; Z7502; 99283